=== PATIENT | female | born 1965 | race Caucasian/White ===

== ENCOUNTER → 2016-12-17 | Outpatient (CLI) | payer MEDICARE, OTHER ==
[~2016-12-17] MED LIST: METFORMIN HCL500 MG PO
== END ==
LOC: RAD 12:13
DX: M25.512 Pain in left shoulder (principal); M79.632 Pain in left forearm; M25.532 Pain in left wrist
CPT/HCPCS: 73030; 73090; 73110

== ENCOUNTER → 2016-12-31 | Outpatient (CLI) | payer MEDICARE, OTHER | LOC: MAMO 09:07 | DX: Z12.31 Encounter for screening mammogram for malignant neoplasm of breast (principal) | CPT/HCPCS: G0202 ==